=== PATIENT | female | born 1945 | race Caucasian/White ===

== ENCOUNTER 2022-06-30 12:03 | Emergency (ER) | payer MEDICARE, BC ==
[2022-06-30 13:21] LABS: ESTIMATED GFR 57 mL/min (>60)
== END 2022-06-30 15:24 | disposition home or self-care (01) ==
LOC: JP.ED 12:03
DX: R10.10 Upper abdominal pain, unspecified (principal); Z88.0 Allergy status to penicillin
CPT/HCPCS: 36415; 74176; 80053; 83690; 85025; 99284

== ENCOUNTER 2022-07-03 09:42 | Emergency (ER) | payer MEDICARE, BC ==
[2022-07-03] MEDS ORDERED: Aspirin 81 MG Tab.Chew PO ONE (10:22)
[2022-07-03] MEDS ORDERED: Heparin Sodium 5,000 Units/ML Vial IVPUSH ONE (10:22)
[2022-07-03] MEDS ORDERED: Morphine 2 MG/ML SYRINGE IVPUSH ONE (10:26)
[2022-07-03] MEDS ORDERED: Heparin Sodium/D5W 25,000 UNITS/500 ML BAG IV SCH (10:45)
[2022-07-03 10:54] LABS: ESTIMATED GFR 46 mL/min (>60)
[2022-07-03 10:58] LABS: TROPONIN I HIGH SENSITIVITY 1769.1 pg/mL (<=60.3)
== END 2022-07-03 11:14 | disposition other institution (70) ==
LOC: JP.ED 09:42
DX: I21.3 ST elevation (STEMI) myocardial infarction of unspecified site (principal); I10 Essential (primary) hypertension; E11.9 Type 2 diabetes mellitus without complications; Z88.0 Allergy status to penicillin; Z79.899 Other long term (current) drug therapy; Z79.82 Long term (current) use of aspirin; Z79.84 Long term (current) use of oral hypoglycemic drugs
CPT/HCPCS: 36415; 80053; 84484; 85025; 93005; 96374; 96375; 99285; A9270; J1644; J2270